=== PATIENT | female | born 1965 | race Caucasian/White ===

== ENCOUNTER 2017-09-07 05:11 | Observation (INO) | payer BC, OTHER ==
[2017-08-16 13:06] LABS: HEMATOCRIT 36.6 % (37.0-47.0); HEMOGLOBIN 11.8 gm/dL (12.0-15.0); MCH 25.8 pg (26.0-34.0); MCHC 32.4 g/dL (28.0-37.0); MCV 79.7 fL (80.0-100.0); RBC 4.59 mil/uL (4.20-5.00); RDW 15.5 % (10.5-14.5); URINE BILIRUBIN NEGATIVE (Negative); URINE BLOOD NEGATIVE (Negative); URINE COLOR YELLOW; URINE GLUCOSE-RANDOM* NEGATIVE (Negative); URINE KETONES NEGATIVE (Negative); URINE LEUKOCYTES-REFLEX NEGATIVE (Negative); URINE PROTEIN (DIPSTICK) NEGATIVE (Negative); URINE UROBILINOGEN 0.2 E.U./dl (0.2-1.0); WBC 7.9 thou/uL (4.0-11.0)
[2017-08-16 13:14] LABS: ALBUMIN 3.9 g/dL (3.4-5.0); CALCIUM 9.2 mg/dL (8.5-10.1); CREATININE 0.6 mg/dL (0.6-1.0); POTASSIUM 4.1 mmol/L (3.5-5.1)
[2017-08-16 13:20] LABS: PROTIME 10.5 Seconds (9.3-11.4)
[2017-08-16 22:08] LABS: GLYCOHEMOGLOBIN (HGB A1C) 6.8 % (4.8-5.6)
[~2017-09-07] VITALS: Ht 182.9 cm; Wt 106.1 kg
--- NOTE | ~2017-09-07 | O ---
[facility] [place] [address] OPERATIVE REPORT Name: SHABBIR VEGA Room #: 364-P [facility] M.R.#: [id number] Admission: 09/07/17 Attend Phys: William Hall MD Discharge: Date of : 67 Report #: [id number] THIS REPORT FOR: //name// CC: Maria Alejandra Guardado MD [facility] physician/PCP William Hall DATE OF SERVICE: 09/07/2017 PREOPERATIVE DIAGNOSIS: Cholecystitis with cholelithiasis. POSTOPERATIVE DIAGNOSIS: Cholecystitis with cholelithiasis. PROCEDURE PERFORMED: Laparoscopic cholecystectomy with cholangiogram. SURGEON: William Hall M.D. ANESTHESIA: General anesthesia. COMPLICATIONS: None. ESTIMATED BLOOD LOSS: 5 mL. COMPLICATIONS: None. DESCRIPTION OF PROCEDURE: With the patient under general anesthesia, IV antibiotic was administered. Abdomen was prepped and draped in sterile fashion. A 0.25% Marcaine was used to anesthetize the skin and abdominal wall at the trocar site. A 2 cm incision was made above the umbilicus. The fascia was identified, grasped with hemostat. The fascia was then opened under visualization. A 0 Vicryl suture was placed on the fascia for retraction. Veress needle was then placed through the peritoneum. Abdominal cavity was insufflated with CO2. After creating pneumoperitoneum pressure of 15, 11 mm trocar was placed into the pneumoperitoneum. No harm to the underlying tissue. Two 5 mm trocars were placed in right upper quadrant and a 5 mm trocar placed in the right epigastrium. The liver appears normal. The gallbladder was lifted over the liver. There was adhesion of fatty adhesion to the gallbladder, likely from chronic inflammation. The adhesions were taken down. Peritoneum over the cystic duct and cystic artery was then dissected free. The cystic artery was overlapping the duct. The cystic artery was isolated, clipped x 2 proximally, 1 distally and then divided. Cystic duct was then isolated. A clip was placed in the junction of cystic duct to the gallbladder. Opening was made in the cystic duct. Cholangiogram catheter was inserted. Fluoroscopic cholangiogram was obtained. The catheter would not go in very far. Clip was placed to hold it in place. I was able to inject dye. The common bile duct filled out without difficulty. No filling defects identified. The cholangiogram catheter was then [facility] [address] [place] [address] OPERATIVE REPORT Name: SHABBIR VEGA Room #: 364-P [facility] Simone Ruiz#: [id number] Admission: 09/07/17 Attend Phys: William Hall MD Discharge: Date of : 67 Report #: [id number] removed. The proximal cystic duct was then clipped x 2 and then divided. The gallbladder was free from the liver bed without difficulty. The gallbladder was placed in a specimen bag, retrieved through the infraumbilical port. Gallbladder was opened off the field. There is a small yellowish 2 mm stone that is floating in the water. There was cholesterolosis identified. No other stones were seen. The liver bed was checked, hemostasis obtained. Clips were intact. Irrigation fluid was aspirated out. Trocars were removed. CO2 was evacuated as much as possible. The fascia defect was closed with [id number] 0 Vicryl x 2. Skin was irrigated with saline and closed with 5-0 PDS. Steri-Strips applied. The patient tolerated the procedure well. By: [id number] William Hall MD /nt
--- NOTE | ~2017-09-07 | S ---
[facility] [place] [address] SURGICAL PATH RPT PROCEDURE Name: MERCEDES VEGA Room #: 364-P STANISLAV Ruiz#: [id number] Admission: 09/07/17 Date of : 67 Discharge: 09/08/17 Report #: [id number] Path Case #: [id number] PATHOLOGY REPORT COLLECTION DATE: 09/07/2017 RECEIVED DATE: 09/07/2017 SUBMITTING PHYS: Dr. William Hall OTHER PHYS: SPECIMEN(S) RECEIVED: A.Gallbladder * * * * * * * * * * * * FINAL DIAGNOSIS: Gallbladder, cholecystectomy: - Mild chronic cholecystitis. (IUV:db; 09/08/2017) PATHOLOGIST: Francine Alves M.D. REPORT ELECTRONICALLY SIGNED BY: Francine Alves M.D. DATE/TIME: 09/08/2017 16:44 * * * * * * * * * * * * GROSS PATHOLOGY: Received in formalin labeled "Mercedes Vega gallbladder," is a 6.6 x 4.4 x 1.3 cm, previously opened gallbladder with dark green to light harrison, wrinkled serosal surfaces. Opening the gallbladder reveals dark harrison, velvety mucosa, slightly rippled with yellow highlights, and an average wall thickness of 0.2 cm. Calculi are not present and no masses are noted grossly. Scleroscope Tester sections from the body and fundus are submitted along with the proximal margin in cassette A1. (TSD; 09/07/2017) CLINICAL HISTORY: Cholecystitis INITIAL CPT CODE(S): A; 37683 Professional services performed by [facility] at [facility] [address], [place] [address] Technical services performed by [facility] at [address] [place] [id number]. [facility] [address] [place] [address] SURGICAL PATH RPT PROCEDURE Name: MERCEDES VEGA Room #: 364-P STANISLAV Ruiz#: [id number] Admission: 09/07/17 Date of : 67 Discharge: 09/08/17 Report #: [id number] Path Case #: [id number] [facility] [address] [address] PHONE: [phone] DIRECTOR: Shaquille Caceres M.D. * * * END OF REPORT * * *
--- NOTE | ~2017-09-07 | EKG ---
[address] [address] ELECTROCARDIOGRAM REPORT Name: SHABBIR VEGA Room #: PRE IN [facility].#: [id number] Admission: Attend Phys: Anand Bush MD Discharge: Date of : 67 Report #: [id number] THIS REPORT FOR: //name// [facility] Test Date: 2017-08-16 Test Time: 12:58:21 Pat Name: SHABBIR VEGA Department: Room: Gender: F Director Of Kids: William MEYERS : 1965 Requested By: Anand Bush Order Number: [id number] MD: Raad Joseph Measurements Intervals [place] Rate: 76 P: 49 W[place]: 158 QRS: 22 QRSD: 96 T: 29 QT: 410 QTc: 462 Interpretive Statements Sinus rhythm Baseline wander in lead(s) V3,V5,V6 No previous ECG available for comparison Electronically Signed On 08-16-2017 14:50:00 CDT by Raad Joseph [email or web address] <ELECTRONICALLY SIGNED> By: Raad Joseph MD 08/16/17 1450 D: 09/1257 57 Raad Joseph MD /JOSR
[~2017-09-07 05:11] MED LIST: BACTROBAN NASAL1 GM NASAL; CALCIUM 500 +1 EAC5 PO; CENTRUM SILVER1 EAC4 PO; IRON325 PO; LEXAPRO 10 MG T10 MG PO; NORCO 5-325 TA1 EACH PO; PENNSAID2 GM TOP; PRILOSEC 20 MG20 MG PO; TRAMADOL 50 MG50 MG PO; TYLENOL325 MG PO; VITAMIN B-12500 MCG IM; VITAMIN D-32000 UNIT PO
[2017-09-07 09:50] LABS: HEMATOCRIT 37.4 % (37.0-47.0); HEMOGLOBIN 12.1 gm/dL (12.0-15.0); MCHC 32.3 g/dL (28.0-37.0); MCV 80.7 fL (80.0-100.0); RBC 4.63 mil/uL (4.20-5.00); RDW 15.7 % (10.5-14.5); WBC 5.3 thou/uL (4.0-11.0)
[2017-09-07 11:32] VITALS: BP 118/72
[2017-09-07 15:40] VITALS: BP 117/71
[2017-09-07 20:50] VITALS: BP 127/72
[2017-09-08] VITALS: BP 119/67
[2017-09-08 04:05] VITALS: BP 101/64
[2017-09-08 08:02] VITALS: BP 117/74
[2017-09-08] MEDS ORDERED: PERCOCET PO (10:56)
[2017-09-08 13:00] VITALS: BP 123/71
[2017-09-08 13:46] VITALS: BP 123/71
== END 2017-09-08 15:39 | disposition home or self-care (01) ==
LOC: OR 05:11 → TBA 05:12 → OR 08:38 → 4W 15:54 → 3W 16:17 → ENTRNSPT 09-08 15:31 → EDTRNSPTSTS 09-08 15:36 → 3W 09-08 15:39
PROVIDERS: Orthopaedic Surgery; Surgery
DX: K80.10 Calculus of gallbladder with chronic cholecystitis without obstruction (principal)
CPT/HCPCS: 50010; 50101; 50411; 50555; 50558; 51489; 51975; 53307; 53310; 55245; 56462; 62110; 62900; 70005

== ENCOUNTER → 2019-09-08 | Outpatient (CLI) | payer BC, OTHER ==
[~2019-09-08] MED LIST changes: +PERCOCET PO
== END ==
LOC: RAD 09:14
DX: Z12.31 Encounter for screening mammogram for malignant neoplasm of breast (principal)